=== PATIENT | male | born 1980 | race Caucasian/White ===

== ENCOUNTER 2023-12-29 07:40 | Emergency (ER) | payer MEDICAID ==
[~2023-12-29] VITALS: Ht 182.9 cm; Wt 81.6 kg
[2023-12-29 07:44] VITALS: BP 165/84; PULSE 89; RESP 14; TEMP 97.8; O2SAT 96
== END 2023-12-29 08:05 ==
LOC: MED 07:40
DX: M25.539 Pain in unspecified wrist (principal)
CPT/HCPCS: 99283